=== PATIENT | female | born 1995 | race Caucasian/White ===

== ENCOUNTER 2022-04-05 17:04 | Emergency (ER) | payer OTHER ==
[~2022-04-05] VITALS: Ht 165.1 cm; Wt 127.3 kg
[2022-04-05 17:19] VITALS: BP 126/93
[2022-04-05] MEDS ORDERED: ALBU8HFA PO (20:48)
[2022-04-05] MEDS ORDERED: dexamethasone sod phosphate 10mg/ml inj PO STA (20:48)
== END 2022-04-05 21:03 | disposition home or self-care (01) ==
LOC: ER 17:07
DX: R05.9 Cough, unspecified (principal); R06.02 Shortness of breath; R06.2 Wheezing; J45.909 Unspecified asthma, uncomplicated; Z88.6 Allergy status to analgesic agent; Z79.899 Other long term (current) drug therapy
CPT/HCPCS: 99283